=== PATIENT | female | born 1940 ===

== ENCOUNTER 2017-09-27 10:31 | Outpatient (CLI) | payer OTHER ==
[~2017-09-27] VITALS: Ht 157.5 cm; Wt 46.3 kg
== END 2017-09-27 10:45 | disposition home or self-care (01) ==
LOC: OFIC 805 10:31
DX: H92.03 Otalgia, bilateral (principal); H93.13 Tinnitus, bilateral; H90.3 Sensorineural hearing loss, bilateral; R51 Headache; J31.0 Chronic rhinitis

== ENCOUNTER 2017-10-25 10:40 | Outpatient (CLI) | payer OTHER ==
[~2017-10-25] VITALS: Ht 152.4 cm; Wt 46.3 kg
== END 2017-10-25 11:00 | disposition home or self-care (01) ==
LOC: OFIC 805 10:40
DX: H93.13 Tinnitus, bilateral (principal); H92.03 Otalgia, bilateral; H90.3 Sensorineural hearing loss, bilateral; G44.89 Other headache syndrome; J31.0 Chronic rhinitis

== ENCOUNTER 2017-11-24 07:37 | Outpatient (CLI) | payer OTHER ==
[~2017-11-24] VITALS: Ht 152.4 cm; Wt 46.3 kg
== END 2017-11-24 07:55 | disposition home or self-care (01) ==
LOC: OFIC 805 07:37
DX: H92.03 Otalgia, bilateral (principal); R42 Dizziness and giddiness; H93.13 Tinnitus, bilateral; R51 Headache; J31.0 Chronic rhinitis; H91.8X3 Other specified hearing loss, bilateral